=== PATIENT | male | born 1995 | race Caucasian/White ===

== ENCOUNTER 2016-08-26 12:54 | Emergency (ER) | payer BC ==
--- NOTE | 2016-08-26 14:01 | RAD ---
INDICATION: Left knee injury. TECHNIQUE: 4 views of the left knee were obtained. FINDINGS: Postsurgical changes are present consistent with a prior anterior cruciate ligament repair. The bones are in normal alignment. No joint effusion or fracture is seen. Joint spaces appear maintained. IMPRESSION: NO EVIDENCE FOR FRACTURE.
[2016-08-26 14:48] VITALS: BP 151/96
--- NOTE | 2016-08-26 15:00 | ED ---
Lower Extremity - HPI Summary HPI Summary: Patient presents to ED with CC of L knee pain since last night. He states he was playing basketball when he jumped and landed wrong, heard a "pop" and has since been unable to bear weight. He had an ACL tear previously and was seen by Dr. Cunningham. Patient states he called Dr. Cunningham's office this am and is able to get into the office on Monday morning. Patient here to determine if anything is fractured and the need for further immediate management. States the pain is medial and 7/10 while straightening or standing. At rest and with knee at flexion, 0/10 pain. - History of Current Complaint Chief Complaint: EDExtremityLower Stated Complaint: LEFT KNEE PAIN Hx Obtained From: Patient Mechanism Of Injury: Fall From A Standing Position, Twisted Onset of Pain: Immediate Onset/Duration: Hours - since last evening Severity Initially: Mild Severity Currently: Mild Pain Intensity: 0 Pain Scale Used: 0-10 Numeric Location: Is Discrete @ - medial knee Character Of Pain: Aching, Throbbing Associated Signs And Symptoms: Positive: Swelling - slight swelling over anterior knee Aggravating Factor(s): Standing, Ambulation, Movement, Weight Bearing Alleviating Factor(s): Rest Able to Bear Weight: No - Risk Factors Gout Risk Factors: Negative DVT Risk Factors: Negative Septic Arthritis Risk Factor: Negative - Allergies/Home Medications Allergies/Adverse Reactions: Allergies Allergy/AdvReac Type Severity Reaction Status Date / Time No Known Allergies Allergy Verified 01/30/14 06:56 PMH/Surg Hx/FS Hx/Imm Hx Previously Healthy: Yes Endocrine/Hematology History: Denies: Hx Diabetes Cardiovascular History: Denies: Hx Hypertension, Hx Pacemaker/ICD Sensory History: Denies: Hx Contacts or Glasses, Hx Hearing Aid Opthamlomology History: Denies: Hx Contacts or Glasses Psychiatric History: Denies: Hx Panic Disorder - Surgical History Surgery Procedure, Year, and Place: RT ELBOW SURGERY Hx Anesthesia Reactions: No - Immunization History Hx Pertussis Vaccination: No Immunizations Up to Date: No Infectious Disease History: No Infectious Disease History: Denies: Traveled Outside the [place] in Last 30 Days - Social History Occupation: Student Lives: With Family Alcohol Use: None Substance Use Type: Reports: None Smoking Status (MU): Never Smoked Tobacco Review of Systems Constitutional: Negative Cardiovascular: Negative Respiratory: Negative Positive: Arthralgia - left knee, Decreased ROM, Edema Skin: Negative Neurological: Negative Psychological: Normal All Other Systems Reviewed And Are Negative: Yes Physical Exam Triage Information Reviewed: Yes Vital Signs On Initial Exam: Initial Vitals Temp Pulse Resp BP Pulse Ox 97.4 F 66 16 158/82 100 08/26/16 12:56 08/26/16 12:56 08/26/16 12:56 08/26/16 12:56 08/26/16 12:56 Vital Signs Reviewed: Yes Appearance: Positive: Well-Appearing, No Pain Distress, Well-Nourished Skin: Positive: Warm, Skin Color Reflects Adequate Perfusion Head/Face: Positive: Normal Head/Face Inspection Eyes: Positive: Normal, EOMI, LAZARO Respiratory/Lung Sounds: Positive: Clear to Auscultation, Breath Sounds Present Cardiovascular: Positive: Normal Musculoskeletal: Positive: Limited @ - flexion and extension of knee, Pain @ - left medial knee Neurological: Positive: Normal, Sensory/Motor Intact Psychiatric: Positive: Normal AVPU Assessment: Alert Diagnostics - Vital Signs Vital Signs Temp Pulse Resp BP Pulse Ox 08/26/16 14:47 99.1 F 55 16 151/96 08/26/16 12:56 97.4 F 66 16 158/82 100 - Laboratory Lab Statement: Any lab studies that have been ordered have been reviewed, and results considered in the medical decision making process. - Radiology No standard instances Xray Interpretation: No Acute Changes Radiology Interpretation Completed By: Radiologist Lower Extremity Course/Dx - Course Course Of Treatment: Patient sent to Xray. No acute findings. Thessaly, appley and isamar's test positive. Anterior drawer negative, nikita negative. Likely medial meniscal tear d/t patients positive exam findings and location of pain. Patient to follow up with Dr. Cunningham on Monday. Immobilizer given. Patient has crutches. No pain management needed per patient. Assessment/Plan: Follow up with Dr. Cunningham on Monday. - Diagnoses Differential Diagnosis/HQI/PQRI: Positive: Contusion, Sprain, Strain, Tendonitis , Other - pes ansirine Provider Diagnoses: Knee pain, left Discharge - Discharge Plan Condition: Stable Disposition: HOME Patient Education Materials: Knee Immobilizer (ED), Meniscus Tear (ED) Referrals: Brennon Cunningham MD [Medical Doctor] - Lashae SIMON,Jose Angel Reynaga [Primary Care Provider] - Additional Instructions: Rest, ice and elevate. Ibuprofen 600mg three times daily as needed for pain and inflammation
== END 2016-08-26 14:47 | disposition home or self-care (01) ==
LOC: ED 12:54
DX: M25.562 Pain in left knee (principal); R60.0 Localized edema
CPT/HCPCS: 99282

== ENCOUNTER 2016-09-23 10:48 | Day surgery (SDC) | payer BC ==
[~2016-09-23 10:48] MED LIST: Buffered Lidocaine 1% SYR 3ML* 3 ML/SYR SYRINGE INTRADERM ONE; Dexamethasone IV* 4 MG/ML 1 ML (4 MG) IV SLOW PU ONE; Famotidine IV* 10 MG/ML 2 ML (20 mg) IV ONE
[2016-09-23] MEDS ORDERED: Midazolam* 1 MG/ML 2 ML VIAL (2 MG) ONE ×2 (10:59→11:20)
[2016-09-23] MEDS ORDERED: fentaNYL* 50 MCG/ML 2 ML VIAL (100 MCG VIAL) ONE ×2 (10:59→15:36)
[2016-09-23] MEDS ORDERED: HYDROmorphone INJ* 1 MG/ML CARPUJECT SYRINGE ONE ×2 (10:59→15:36)
[2016-09-23] MEDS ORDERED: Famotidine IV* 10 MG/ML 2 ML (20 mg) ONE (11:00)
[2016-09-23] MEDS ORDERED: Dexamethasone IV* 4 MG/ML 1 ML (4 MG) ONE (11:00)
[2016-09-23] MEDS ORDERED: ceFAZolin 2 GM PREMIX (*) 2 GM/50 ML BAG IVPB ONE (11:00)
[2016-09-23] MEDS ORDERED: Ketorolac INJ* 30 MG/ML 1 ML VIAL ONE (11:01)
[2016-09-23] MEDS ORDERED: Lidocaine 2% PF * 5 ML VIAL ONE (11:01)
[2016-09-23] MEDS ORDERED: Ondansetron INJ* 2 MG/ML VIAL ONE (11:01)
[2016-09-23] MEDS ORDERED: Propofol* 10 MG/ML 20 ML BTL IV PUSH ONE (11:01)
[2016-09-23] MEDS ORDERED: DiMENhydriNATE IV* 50 MG/ML VIAL IV PUSH PRN (11:16)
[2016-09-23] MEDS ORDERED: fentaNYL* 50 MCG/ML 2 ML VIAL (100 MCG VIAL) IV PRN (11:16)
[2016-09-23] MEDS ORDERED: Ondansetron INJ* 2 MG/ML VIAL IV PRN (11:16)
[2016-09-23] MEDS ORDERED: HYDROmorphone INJ* 1 MG/ML CARPUJECT SYRINGE IV PRN (11:16)
[2016-09-23] MEDS ORDERED: PROCHLORPERAZINE INJ 5 MG/ML 2 ML VIAL IV PRN (11:16)
[2016-09-23] MEDS ORDERED: Scopolamine 1.5 mg* PATCH TRANSDERM PRN (11:16)
[2016-09-23] MEDS ORDERED: EPINEPHrine AMP 1 MG/ML ONE (14:40)
[2016-09-23] MEDS ORDERED: Bupivacaine 0.5% W/EPI SDV* 30 ML VIAL ONE (14:40)
[2016-09-23] MEDS ORDERED: Esmolol* 10 MG/ML 10 ML (100 mg) ONE (16:19)
[2016-09-23] MEDS ORDERED: Morphine INJ* 10 MG/ML 1 ML CARPUJECT ONE (16:45)
[2016-09-23 20:11] VITALS: BP 161/85
--- NOTE | 2016-09-25 21:38 | OP ---
DATE OF OPERATION: 09/23/16 [facility] DATE OF : 89 SURGEON: [place] MD DOG GROOMER: NICHOL Sheridan. ANESTHESIOLOGIST: Dr. Eloy Sparrow. ANESTHESIA: General anesthesia. PRE-OP DIAGNOSES: 1. Left knee medial meniscus tear. 2. Left knee possible tear of ACL reconstructed ligament. POST-OP DIAGNOSES: 1. Left knee medial meniscus tear. 2. Left ACL graft intact. 3. Left knee anterior synovitis and cyclops lesion, small. OPERATIVE PROCEDURES: 1. Left knee arthroscopic medial meniscal repair. 2. Left knee arthroscopic evaluation of ACL graft. 3. Left knee arthroscopic debridement of small cyclops lesion as well as anterior synovitis, left knee. ANTIBIOSIS: Ancef 2 g IV. TOURNIQUET TIME: 96 minutes at 300 mmHg. IV FLUIDS: See anesthesia note. ESTIMATED BLOOD LOSS: Minimal. COMPLICATIONS: None. IMPLANTS: Fast-Fix 360 degrees Sparrow and Nephew sutures x3. SPECIMEN: None. 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 Interestingly, there was no specific twist, fall or injury. The patient just took a step forward and heard and felt a pop in his left knee. The patient noted swelling that night. He may have had swelling while playing, but he said that he plays in a knee sleeve and brace and so was not able to see skin well. Since that injury, the patient had not had significant knee pain, but had a persistent effusion that was limiting his gait and limiting his knee extension which was getting in the way of his activities of daily living. Of note, his surgical history of that left knee was significant for an ACL reconstruction with bone- patella-bone autograft and biocomposite screws done by Dr. Cunningham in February 2014. There was also partial lateral meniscectomy of the posterior horn of the lateral meniscus done during that operation. The patient was noted to have a medial meniscal tear of the posterior horn, peripheral, but that was not addressed and thought to be stable at the time of that first procedure. After that operation, the patient had an uneventful and complicated recovery and returned to full sports including basketball, which he would do using a sleeve and a brace. The patient acknowledged that he might have had a similar injury 1 week prior to his 08/25/16 basketball injury. On examination, the patient had a mild effusion, range of motion from 10 to 125 degrees of flexion. Negative joint line tenderness and negative Valerie's. I thought he might have some laxity with Jenise and anterior drawer, but I thought he did have an endpoint and he had no pain with pivot shift testing. X-rays showed some mild medial compartment narrowing and a spur in the lateral compartment. An MRI demonstrated a displaced large medial meniscal tear, almost full width apparently of the anterior horn, body and posterior horn of the medial meniscus. Double PCL sign was visible. There was poor visualization of the ACL mid substance consistent with a partial or complete tear and no bony contusions were visualized. I talked to the patient about surgical management of the medial meniscus and possibly the ACL. The patient and his mother were adamant that even if I were to encounter a torn ACL graft intraoperatively, they did not want to do another ACL reconstruction. This was because they did not want to go through that rehabilitation again. The patient is comfortable with any sports limitations that causes. The patient did opt for surgical treatment of the displaced medial meniscal repair and I booked it as a meniscal repair versus meniscectomy. I certainly wanted to repair the meniscus if at all possible given the patient's young age and, according to MRI, the significant width of the tear. DESCRIPTION OF PROCEDURE: Preoperative written consent was obtained. Operative extremity was marked in preoperative holding. The patient was taken back to the operating room and placed supine on operating room table. Sedated and LMA placed. A tourniquet was placed about the proximal left thigh. The distal left thigh was placed in a circumferential thigh kimble. The bed was elevated and the foot of the bed was dropped. The left lower extremity was prepped and draped. Surgical time- out was performed. An Esmarch was placed and the tourniquet was elevated to 300 mmHg. Anterolateral knee arthroscopy portal was established using a standard technique. Diagnostic arthroscopy was commenced. No patellofemoral compartment or articular cartilage damage visualized. I dropped down to the medial compartment and viewed a large bucket- handle medial meniscal tear, which had displaced into the intercondylar notch. Surprisingly, and for good fortune for the patient, the ACL graft was fully intact. It looked beautiful like the patient's original ACL. I was very impressed with its appearance. There was a small cyclops lesion anterior to the ACL. I established an anteromedial knee arthroscopy portal under direct visualization. The first challenge was to mobilize the meniscal tear. Surprisingly, this took some time. That medial meniscal fragment was wedged very tightly up into the notch. Gentle probing with trocar or with the arthroscopic probe was insufficient to reduce it. Instead, I had to really pull the meniscal fragment out from within the intercondylar notch where it had wedged quite tightly. Eventually, this worked and I was able to reduce the bucket-handle meniscal tear. This tear traversed from anterior horn to body to posterior horn. It was more posterior than anteriorly located. This tear was quite close to the meniscocapsular junction. This being a red-red zone encouraged me that it might heal, although the overall quality of the meniscal tissue was not especially healthy looking. I decided to repair it. Of note, the patient's medial compartment was incredibly tight. This was despite us putting a significant amount of valgus stress on the knee to open up the medial compartment. We first tried to place a Fast-Fix into the posterior horn. The posterior horn was not particularly well visualized. That Fast-Fix device air balled, rather more specifically, the plastic pieces did not go through the capsule. Therefore, we removed the suture and we removed both plastic pieces successfully. Therefore, we decided instead of starting posterior we would start anterior. We then placed the most anterior stitch about the anterior aspect of the body of the medial meniscus. Then we placed another stitch at the junction of the body in the posterior horn of the meniscus. At this point, the meniscus had been very well reduced and was clearly stable and well fixed. We then obtained a slightly better visualization of the posterior horn and the posterior horn tissue was clearly very well reduced. We placed then a third Fast -Fix suture device in the posterior horn of the medial meniscus. These were more horizontal than vertical mattress. I probed the meniscus and found it to be stable and well reduced. We then turned our attention to the ACL. I debrided the cyclops lesion as well as some anterior synovitis just anterior to the ACL insertion. I next inspected the lateral compartment where there was no significant pathology. I then removed all instruments and fluid from the knee. I closed the skin incisions with [id number] stitches using nylon 4-0 suture, Xeroform, 4x4's, ABDs, sterile Webril, Anshul bandage. Tourniquet dropped. The patient was then placed in a knee brace locked in extension. The patient was awakened, extubated, and brought to the PACU. DISPOSITION: The patient will follow up with me 10 to 14 days postoperatively, although he will start physical therapy before that. He will take Percocet as needed, as well as aspirin and Keflex postoperatively. [id number]/[facility] #: [id number] [facility]
[2016-09-26] MEDS ORDERED: Scopolamine PATCH Remove* 1 NOTE MISC PATCH OFF ONE (11:18)
== END 2016-09-23 20:14 | disposition home or self-care (01) ==
LOC: OR 10:48
PROVIDERS: ATTEND Orthopaedic Surgery
DX: S83.212A Bucket-handle tear of medial meniscus, current injury, left knee, initial encounter (principal); M65.862 Other synovitis and tenosynovitis, left lower leg; X50.0XXA Overexertion from strenuous movement or load, initial encounter; Y93.67 Activity, basketball; Y92.310 Basketball court as the place of occurrence of the external cause
CPT/HCPCS: J0171; J0690; J1100; J1170; J1885; J2250; J2270; J2405; J2704; J3010